=== PATIENT | female | born 1980 | race Caucasian/White ===

== ENCOUNTER 2016-07-26 05:33 | Inpatient (IN) | payer OTHER ==
[~2016-07-26] VITALS: Ht 154.9 cm; Wt 98.7 kg
[~2016-07-26 05:33] MED LIST: ADVIL200 M3 PO; ALAVERT10 MG PO; ATIVAN1 MG PO; BENTYL10 MG PO; CAMPRAL333 MG PO; CYCLOBENZAPRINE 10 M; DILTIAZEM 24HR120 MG PO; FLEXERIL10 MG PO; FLONASE16 G1 NS; FLOVENT 22120 INHALA; HYDROCHLOROTH12.5 M1 PO; HYDROCODON-ACE1 EAC7 PO; KEFLEX500 MG PO; LAMICTAL200 MG PO; LAMICTAL25 MG PO; LAMOTRIGINE100 MG PO; LISINOPRIL-HCT1 EAC3 PO; MEDROL DOSEPAK4 MG PO; METHYLPHENIDATE10 M1 PO; NAPROSYN500 MG PO; NASONEX17 GM BOTH NARES; PANTOPRAZOLE SO40 MG PO; PERCOCET 5/31 TABLET PO; PROAIR HFA8.5 GM IH; PROTONIX40 MG PO; PYRIDIUM200 MG PO; SINGULAIR10 MG; SINGULAIR10 MG PO; TOPROL XL6.25 MG PO; TRAMADOL HCL50 MG PO; TYLENOL WITH C1 EACH PO; VICODIN 5-3001 EACH PO; ZADITOR 0.100 DROP/5 BOTH EYES; ZANTAC150 MG PO; ZESTORETIC 20-1 EAC1 PO; ZOFRAN ODT4 MG PO; ZOFRAN4 MG PO; [UNRECOGNIZED DRUG - OTHER] PO
[2016-07-26] MEDS ORDERED: LISINOPRIL-HCT1 EAC3 BC (06:01)
[2016-07-26 06:12] VITALS: BP 116/83
[2016-07-26 14:38] LABS: D-DIMER ELISA 0.73 mg/L FEU (< 0.57)
[2016-07-26 14:47] LABS: ANION GAP 19 MEQ/L (2-14); CHLORIDE 97 MEQ/L (99-109); SAMPLE HEMOLYSIS CHECK 1; SAMPLE ICTERIC CHECK 0; SAMPLE LIPEMIA CHECK 0; SODIUM 137 MEQ/L (136-147)
[2016-07-26 14:51] LABS: TROP-I INTERPRETATION NEGATIVE; TROPONIN-I < 0.01 ng/mL (0.0-0.30)
[2016-07-26 14:53] LABS: GFR ESTIMATE (CALCULATED) > 59 mL/min/; GLUCOSE 174 mg/dL (70-99); UREA NITROGEN (BUN) 7 mg/dL (9-23)
[2016-07-26 20:20] VITALS: BP 129/84
[2016-07-26 21:46] LABS: D-DIMER ELISA 0.86 mg/L FEU (< 0.57)
[2016-07-26 22:02] LABS: ANION GAP 13 MEQ/L (2-14); CHLORIDE 100 MEQ/L (99-109); GFR ESTIMATE (CALCULATED) > 59 mL/min/; GLUCOSE 229 mg/dL (70-99); POTASSIUM 3.9 MEQ/L (3.7-5.4); SAMPLE HEMOLYSIS CHECK 0; SAMPLE ICTERIC CHECK 0; SAMPLE LIPEMIA CHECK 0; SODIUM 136 MEQ/L (136-147); UREA NITROGEN (BUN) 8 mg/dL (9-23)
[2016-07-26 23:16] VITALS: BP 127/66
[2016-07-27 04:06] VITALS: BP 117/69
[2016-07-27 07:11] LABS: HEMATOCRIT 44.7 % (36.0-46.0); MCH 39.2 PG (29.0-34.0); MCHC 34.7 G/DL (30.0-36.0); MCV 113.2 FL (83-99); MEAN PLAT.VOLUME 9.8 uM^3 (9.5-12.4); PLATELET COUNT 259 K/uL (156-360); RBC DIS.WIDTH-CV 12.6 % (11.8-14.6); RED BLOOD COUNT 3.95 M/uL (3.80-5.20)
[2016-07-27 07:15] LABS: WHITE BLOOD COUNT 19.5 K/uL (4.1-10.2)
[2016-07-27 07:33] LABS: ALKALINE PHOSPHATASE 74 IU/L (3-129); ANION GAP 17 MEQ/L (2-14); CHLORIDE 102 MEQ/L (99-109); GFR ESTIMATE (CALCULATED) > 59 mL/min/; GLUCOSE 173 mg/dL (70-99); POTASSIUM 3.5 MEQ/L (3.7-5.4); SAMPLE HEMOLYSIS CHECK 0; SAMPLE ICTERIC CHECK 0; SAMPLE LIPEMIA CHECK 0; SODIUM 139 MEQ/L (136-147); TOTAL BILIRUBIN 0.6 MG/DL (0.0-1.0); UREA NITROGEN (BUN) 9 mg/dL (9-23)
[2016-07-27 08:00] VITALS: BP 141/85
[2016-07-27 08:12] LABS: TROP-I INTERPRETATION NEGATIVE; TROPONIN-I < 0.01 ng/mL (0.0-0.30)
[2016-07-27 11:53] VITALS: BP 137/87
[2016-07-27 16:50] VITALS: BP 138/75
[2016-07-27 19:45] VITALS: BP 131/77
[2016-07-27 23:48] VITALS: BP 150/88
[2016-07-28 03:30] VITALS: BP 148/82
[2016-07-28 06:50] VITALS: BP 137/80
[2016-07-28 07:23] LABS: MCH 39.3 PG (29.0-34.0); MCV 115.4 FL (83-99); MEAN PLAT.VOLUME 9.7 uM^3 (9.5-12.4); PLATELET COUNT 228 K/uL (156-360); RBC DIS.WIDTH-SD 54.3 % (39-53); RED BLOOD COUNT 3.64 M/uL (3.80-5.20); WHITE BLOOD COUNT 22.5 K/uL (4.1-10.2)
[2016-07-28 07:54] LABS: ALKALINE PHOSPHATASE 51 IU/L (3-129); ANION GAP 12 MEQ/L (2-14); CHLORIDE 107 MEQ/L (99-109); GFR ESTIMATE (CALCULATED) > 59 mL/min/; GLUCOSE 141 mg/dL (70-99); POTASSIUM 3.5 MEQ/L (3.7-5.4); SAMPLE HEMOLYSIS CHECK 0; SAMPLE ICTERIC CHECK 0; SAMPLE LIPEMIA CHECK 0; SODIUM 140 MEQ/L (136-147); TOTAL BILIRUBIN 0.5 MG/DL (0.0-1.0); UREA NITROGEN (BUN) 10 mg/dL (9-23)
[2016-07-28 12:00] VITALS: BP 137/82
[2016-07-28 15:29] VITALS: BP 162/90
[2016-07-28 19:08] VITALS: BP 160/82
[2016-07-29] VITALS (8 sets, daily range): BP systolic 123–184; BP diastolic 64–94
[2016-07-29 07:03] LABS: MCHC 34.6 G/DL (30.0-36.0); MCV 115.5 FL (83-99); PLATELET COUNT 229 K/uL (156-360); RBC DIS.WIDTH-CV 12.8 % (11.8-14.6); RBC DIS.WIDTH-SD 53.8 % (39-53); RED BLOOD COUNT 3.55 M/uL (3.80-5.20); WHITE BLOOD COUNT 19.2 K/uL (4.1-10.2)
[2016-07-29 07:31] LABS: ALKALINE PHOSPHATASE 52 IU/L (3-129); ANION GAP 11 MEQ/L (2-14); CHLORIDE 105 MEQ/L (99-109); GFR ESTIMATE (CALCULATED) > 59 mL/min/; GLUCOSE 116 mg/dL (70-99); SAMPLE HEMOLYSIS CHECK 0; SAMPLE ICTERIC CHECK 0; SAMPLE LIPEMIA CHECK 0; SODIUM 140 MEQ/L (136-147); TOTAL BILIRUBIN 0.5 MG/DL (0.0-1.0); UREA NITROGEN (BUN) 10 mg/dL (9-23)
[2016-07-30 01:15] VITALS: BP 166/88
[2016-07-30 03:20] VITALS: BP 134/90
[2016-07-30 07:34] LABS: ANION GAP 11 MEQ/L (2-14); CHLORIDE 107 MEQ/L (99-109); POTASSIUM 3.5 MEQ/L (3.7-5.4); SAMPLE HEMOLYSIS CHECK 0; SAMPLE ICTERIC CHECK 0; SAMPLE LIPEMIA CHECK 0; SODIUM 139 MEQ/L (136-147)
[2016-07-30 07:39] LABS: GFR ESTIMATE (CALCULATED) > 59 mL/min/; GLUCOSE 131 mg/dL (70-99); UREA NITROGEN (BUN) 8 mg/dL (9-23)
[2016-07-30 08:00] VITALS: BP 141/89
[2016-07-30 12:00] VITALS: BP 141/84
[2016-07-30 16:00] VITALS: BP 149/79
[2016-07-30] MEDS ORDERED: FLEXERIL10 MG PO (17:06)
[2016-07-30] MEDS ORDERED: AMOX TR-K CLV1 EAC4 PO (17:06)
[2016-07-30] MEDS ORDERED: NAPROSYN500 MG PO (17:08)
[2016-07-30] MEDS ORDERED: PREDNISONE20 MG PO (17:11)
[2016-07-30] MEDS ORDERED: PROAIR HFA8.5 GM IH (17:14)
[2016-07-30] MEDS ORDERED: ZOLPIDEM TARTRAT5 MG PO (17:16)
[2016-07-31] MEDS ORDERED: VENTOLIN HFA18 GM IH (01:34)
[2016-07-31] MEDS ORDERED: NAPROXEN500 MG PO (01:35)
[2016-07-31] MEDS ORDERED: ZESTORETIC 20-1 EAC1 PO (01:35)
[2016-07-31] MEDS ORDERED: FLEXERIL10 MG PO (01:35)
[2016-07-31] MEDS ORDERED: CARTIA XT120 MG PO (01:36)
[2016-07-31] MEDS ORDERED: AUGMENTIN875 MG PO (01:38)
[2016-07-31] MEDS ORDERED: ZOLPIDEM TARTRAT5 MG PO (01:38)
[2016-07-31] MEDS ORDERED: DELTASONE20 M1 PO (01:38)
== END 2016-07-30 18:14 | disposition home or self-care (01) | DRG 178 ==
LOC: SDC 05:33 → 2SOUTH 08:30 → 2EAST 08:30 → SDC 15:16 → 2EAST 20:06
PROVIDERS: Internal Medicine; Obstetrics & Gynecology
DX: J69.0 Pneumonitis due to inhalation of food and vomit (principal); J98.11 Atelectasis; Z68.41 Body mass index [BMI] 40.0-44.9, adult; I95.9 Hypotension, unspecified; R00.2 Palpitations; R06.00 Dyspnea, unspecified; D72.829 Elevated white blood cell count, unspecified; J98.01 Acute bronchospasm; I10 Essential (primary) hypertension; E03.9 Hypothyroidism, unspecified; M54.9 Dorsalgia, unspecified; T41.0X5A Adverse effect of inhaled anesthetics, initial encounter; R09.02 Hypoxemia; R00.0 Tachycardia, unspecified; Z88.1 Allergy status to other antibiotic agents; Z87.891 Personal history of nicotine dependence; Z30.432 Encounter for removal of intrauterine contraceptive device; Z88.6 Allergy status to analgesic agent; Z53.9 Procedure and treatment not carried out, unspecified reason; G47.00 Insomnia, unspecified; E66.01 Morbid (severe) obesity due to excess calories
CPT/HCPCS: 36415; 71010; 71275; 80048; 80048 91; 80053; 84484; 84702; 85027; 85379; 87624; 93005; 94002; 94640; 94640 76; 94760; 94799; 99202; J0131; J0690; J0696; J1100; J1650; J2250; J2405; J2543; J2930; J3010; J7030; J7050; J7512

== ENCOUNTER 2016-07-30 21:43 | Observation (INO) | payer OTHER ==
[~2016-07-30] VITALS: Ht 154.9 cm; Wt 102.9 kg
[~2016-07-30 21:43] MED LIST changes: +AMOX TR-K CLV1 EAC4 PO; +LISINOPRIL-HCT1 EAC3 BC; +PREDNISONE20 MG PO; +ZOLPIDEM TARTRAT5 MG PO
[2016-07-30 22:46] LABS: MCH 39.8 PG (29.0-34.0); MCHC 35.5 G/DL (30.0-36.0); MCV 112.2 FL (83-99); MEAN PLAT.VOLUME 9.6 uM^3 (9.5-12.4); PLATELET COUNT 256 K/uL (156-360); RBC DIS.WIDTH-CV 12.2 % (11.8-14.6); RBC DIS.WIDTH-SD 48.4 % (39-53); RED BLOOD COUNT 3.92 M/uL (3.80-5.20); WHITE BLOOD COUNT 20.2 K/uL (4.1-10.2)
[2016-07-30 22:55] LABS: CHLORIDE 106 mEq/L (99-109); POTASSIUM 4.2 mEq/L (3.7-5.4); SODIUM 139 mEq/L (136-147)
[2016-07-30 22:57] LABS: GLUCOSE 135 mg/dL (70-99)
[2016-07-30 22:58] LABS: ANION GAP 13 MEQ/L (2-14)
[2016-07-30 23:01] LABS: GFR ESTIMATE (CALCULATED) > 59 mL/min/; UREA NITROGEN (BUN) 11 mg/dL (9-23)
[2016-07-30 23:55] LABS: TROP-I INTERPRETATION NEGATIVE; TROPONIN-I < 0.01 ng/mL (0.0-0.30)
[2016-07-31] MEDS ORDERED: VENTOLIN HFA18 GM IH (01:34)
[2016-07-31] MEDS ORDERED: ZESTORETIC 20-1 EAC1 PO (01:35)
[2016-07-31] MEDS ORDERED: NAPROXEN500 MG PO (01:35)
[2016-07-31] MEDS ORDERED: FLEXERIL10 MG PO (01:35)
[2016-07-31] MEDS ORDERED: CARTIA XT120 MG PO (01:36)
[2016-07-31] MEDS ORDERED: DELTASONE20 M1 PO (01:38)
[2016-07-31] MEDS ORDERED: ZOLPIDEM TARTRAT5 MG PO (01:38)
[2016-07-31] MEDS ORDERED: AUGMENTIN875 MG PO (01:38)
[2016-07-31 03:20] VITALS: BP 170/111
[2016-07-31 05:30] VITALS: BP 155/89
[2016-07-31 08:09] VITALS: BP 136/102
[2016-07-31 08:20] VITALS: BP 136/102
[2016-07-31 11:50] VITALS: BP 129/83
== END 2016-07-31 14:17 | disposition home or self-care (01) ==
LOC: RME 21:43 → EME 21:43 → EDOF 07-31 02:15 → 5WEST 07-31 02:56
PROVIDERS: Physician Assistant
DX: R06.02 Shortness of breath (principal); D72.829 Elevated white blood cell count, unspecified; T38.0X5A Adverse effect of glucocorticoids and synthetic analogues, initial encounter; I10 Essential (primary) hypertension; G89.29 Other chronic pain; M54.9 Dorsalgia, unspecified; E03.9 Hypothyroidism, unspecified; G47.00 Insomnia, unspecified; E66.01 Morbid (severe) obesity due to excess calories; Z68.41 Body mass index [BMI] 40.0-44.9, adult; D68.9 Coagulation defect, unspecified; Z87.891 Personal history of nicotine dependence; Z88.1 Allergy status to other antibiotic agents; Z88.5 Allergy status to narcotic agent; Z82.49 Family history of ischemic heart disease and other diseases of the circulatory system; Z83.49 Family history of other endocrine, nutritional and metabolic diseases
CPT/HCPCS: 71020; 71275; 80048 91; 83880; 84484; 85027; 85379; 93005; G0378; J0360; J1650; J7512

== ENCOUNTER 2016-08-04 08:51 | Emergency (ER) | payer OTHER ==
[~2016-08-04] VITALS: Ht 154.9 cm; Wt 98.2 kg
[~2016-08-04 08:51] MED LIST changes: +AUGMENTIN875 MG PO; +CARTIA XT120 MG PO; +DELTASONE20 M1 PO; +NAPROXEN500 MG PO; +VENTOLIN HFA18 GM IH
[2016-08-04] MEDS ORDERED: PREDNISONE20 MG PO (09:07)
[2016-08-04] MEDS ORDERED: ULTRAM50 MG PO (09:07)
[2016-08-04 10:18] VITALS: BP 122/73
== END 2016-08-04 10:19 | disposition home or self-care (01) ==
LOC: EME → EDBD 08:51 → EME 10:19
DX: M25.551 Pain in right hip (principal); M25.552 Pain in left hip; M54.5 Low back pain; J45.909 Unspecified asthma, uncomplicated; I10 Essential (primary) hypertension; Z88.1 Allergy status to other antibiotic agents; Z88.5 Allergy status to narcotic agent
CPT/HCPCS: 99281; 99284; J7512

== ENCOUNTER 2017-06-09 13:40 | Emergency (ER) | payer BC ==
[~2017-06-09] VITALS: Ht 154.9 cm; Wt 97.5 kg
[~2017-06-09 13:40] MED LIST changes: +ULTRAM50 MG PO
[2017-06-09 15:41] LABS: ADD MIUA? YES; BILIRUBIN NEGATIVE; BLOOD SMALL; COLOR STRAW ((YELLOW)); GLUCOSE (STRIP) NEGATIVE; KETONES NEGATIVE; LEUKOCYTES TRACE; NITRITE NEGATIVE; PROTEIN (STRIP) NEGATIVE; SPECIFIC GRAVITY 1.003 (1.000-1.030); UROBILINOGEN 0.2 MG/DL (0.2-1.0)
[2017-06-09 15:45] LABS: BACTERIA RARE /HPF; EPITHELIAL CELLS 1+ /HPF; MUCUS TRACE /LPF; RED BLOOD CELLS 0-5 /HPF (0-5); WHITE BLOOD CELLS 0-5 /HPF (0-5)
[2017-06-09 15:49] LABS: D-DIMER ELISA < 150.00 ng/mLDDU (<230)
[2017-06-09 16:02] LABS: TROP-I INTERPRETATION NEGATIVE; TROPONIN-I < 0.01 ng/mL (0.0-0.30)
[2017-06-09 16:23] LABS: BASOPHIL COUNT 0.1 K/uL (0-0.1); EOSINOPHIL (%) 2.5 % (0-5); EOSINOPHIL COUNT 0.3 K/uL (0-0.3); HEMATOCRIT 37.9 % (36.0-46.0); IMMATURE GRANULOCYTE (%) 0.5 % (0.0-0.7); IMMATURE GRANULOCYTE COUNT 0.1 K/uL; INSTRUMENT ABS NEUTROPHIL CT 7.2 K/uL; LYMPHOCYTE COUNT 2.7 K/uL (1.0-2.8); MCH 41.3 PG (29.0-34.0); MCHC 36.4 G/DL (30.0-36.0); MCV 113.5 FL (83-99); MEAN PLAT.VOLUME 8.2 uM^3 (9.5-12.4); MONOCYTE (%) 7.1 % (3-12); MONOCYTE COUNT 0.8 K/uL (0-0.8); NEUTROPHIL (%) 64.6 % (45-76); NEUTROPHIL COUNT 7.2 K/uL (1.8-6.4); PLATELET COUNT 298 K/uL (156-360); RBC DIS.WIDTH-CV 12.1 % (11.8-14.6); RBC DIS.WIDTH-SD 50.7 % (39-53); RED BLOOD COUNT 3.34 M/uL (3.80-5.20); WHITE BLOOD COUNT 11.1 K/uL (4.1-10.2)
[2017-06-09 16:27] LABS: ANISOCYTOSIS 2+; MACROCYTES 3+; POLYCHROMASIA 1+; STOMATOCYTES 1+; TARGET CELLS 1+
[2017-06-09] MEDS ORDERED: ATARAX,VISTARIL50 MG PO (16:42)
[2017-06-09] MEDS ORDERED: PREDNISONE10 MG PO (16:42)
[2017-06-09 17:00] VITALS: BP 103/59
== END 2017-06-09 17:01 | disposition home or self-care (01) ==
LOC: EME 13:40
PROVIDERS: Physician Assistant
DX: M50.322 Other cervical disc degeneration at C5-C6 level (principal); R06.02 Shortness of breath; I10 Essential (primary) hypertension; J45.909 Unspecified asthma, uncomplicated; F41.9 Anxiety disorder, unspecified; F32.9 Major depressive disorder, single episode, unspecified; Z86.73 Personal history of transient ischemic attack (TIA), and cerebral infarction without residual deficits; Z88.1 Allergy status to other antibiotic agents; Z88.5 Allergy status to narcotic agent
CPT/HCPCS: 71020; 72040; 72100; 81003; 84484; 84702; 85025; 85379; 93005; 99281; 99284

== ENCOUNTER 2017-11-25 18:40 | Observation (INO) | payer OTHER ==
[~2017-11-25] VITALS: Ht 156.2 cm; Wt 95.3 kg
[~2017-11-25 18:40] MED LIST changes: +ATARAX,VISTARIL50 MG PO; +PREDNISONE10 MG PO
[2017-11-25 19:35] LABS: CHLORIDE 96 mEq/L (99-109)
[2017-11-25 19:36] LABS: SODIUM 129 mEq/L (136-147)
[2017-11-25 19:38] LABS: GLUCOSE 92 mg/dL (70-99); TOTAL PROTEIN 8.2 g/dL (6.4-8.3)
[2017-11-25 19:40] LABS: TOTAL BILIRUBIN 0.4 mg/dL (0.0-1.0)
[2017-11-25 19:41] LABS: ALKALINE PHOSPHATASE 97 IU/L (3-129); CREATININE 0.9 mg/dL (0.6-1.3); GFR ESTIMATE (CALCULATED) > 59 mL/min/
[2017-11-25 19:43] LABS: AST (GOT) 84 IU/L (2-34); UREA NITROGEN (BUN) 7 mg/dL (9-23)
[2017-11-25 19:44] LABS: ALT (GPT) 59 IU/L (3-49)
[2017-11-25 19:45] LABS: LIPASE 19 U/L (1.0-51.0)
[2017-11-25 19:51] LABS: QUANTITATIVE HCG < 4.0 MIU/ML; TROP-I INTERPRETATION NEGATIVE; TROPONIN-I < 0.01 ng/mL (0.0-0.30)
[2017-11-25 19:58] LABS: APPEARANCE SL.HAZY ((CLEAR)); BILIRUBIN NEGATIVE; BLOOD LARGE; COLOR YELLOW ((YELLOW)); GLUCOSE (STRIP) NEGATIVE; KETONES NEGATIVE; LEUKOCYTES TRACE; NITRITE NEGATIVE; PROTEIN (STRIP) 30; SPECIFIC GRAVITY 1.018 (1.000-1.030); UROBILINOGEN 0.2 MG/DL (0.2-1.0)
[2017-11-25 20:01] LABS: PLATELET COUNT 292 K/uL (156-360)
[2017-11-25 20:06] LABS: EPITHELIAL CELLS RARE /HPF; RED BLOOD CELLS TNTC /HPF (0-5)
[2017-11-25 20:07] LABS: BACTERIA NONE SEEN /HPF; MUCUS TRACE /LPF; UCUL ADDED? YES
[2017-11-25 20:21] LABS: RED BLOOD COUNT 3.88 M/uL (3.80-5.20); WHITE BLOOD COUNT 10.8 K/uL (4.1-10.2)
[2017-11-25 20:41] LABS: HEMOGLOBIN 16.2 G/DL (11.9-15.5)
[2017-11-25 20:42] LABS: MCV 41.8 FL (83-99)
[2017-11-25 20:43] LABS: RBC DIS.WIDTH-CV 12.1 % (11.8-14.6); RBC DIS.WIDTH-SD 50.1 % (39-53)
[2017-11-25 21:41] LABS: PLATELET COUNT 264 K/uL (156-360)
[2017-11-25 21:42] LABS: RBC DIS.WIDTH-CV 11.9 % (11.8-14.6); RBC DIS.WIDTH-SD 49.6 % (39-53); RED BLOOD COUNT 3.66 M/uL (3.80-5.20); WHITE BLOOD COUNT 10.7 K/uL (4.1-10.2)
[2017-11-25 22:10] LABS: HEMOGLOBIN 15.3 G/DL (11.9-15.5)
[2017-11-25 22:11] LABS: MCH 41.8 PG (29.0-34.0); MCHC 33.8 G/DL (30.0-36.0); MCV 110.9 FL (83-99)
[2017-11-25] MEDS ORDERED: LISINOPRIL-HCT1 EAC3 PO (22:39)
[2017-11-25] MEDS ORDERED: FLONASE16 G1 BOTH NARES (22:39)
[2017-11-25] MEDS ORDERED: PROAIR HFA8.5 GM IH (22:41)
[2017-11-26 00:07] VITALS: BP 113/66
[2017-11-26 02:22] LABS: HEMOGLOBIN 15.1 G/DL (11.9-15.5); MCH 41.1 PG (29.0-34.0); MCHC 36.8 G/DL (30.0-36.0); MCV 111.7 FL (83-99); PLATELET COUNT 269 K/uL (156-360); RBC DIS.WIDTH-CV 12.1 % (11.8-14.6); RBC DIS.WIDTH-SD 50.5 % (39-53); RED BLOOD COUNT 3.67 M/uL (3.80-5.20); WHITE BLOOD COUNT 9.7 K/uL (4.1-10.2)
[2017-11-26 02:34] LABS: CHLORIDE 95 mEq/L (99-109); SODIUM 131 mEq/L (136-147)
[2017-11-26 02:36] LABS: GLUCOSE 98 mg/dL (70-99)
[2017-11-26 02:40] LABS: CREATININE 0.9 mg/dL (0.6-1.3); GFR ESTIMATE (CALCULATED) > 59 mL/min/
[2017-11-26 02:41] LABS: UREA NITROGEN (BUN) 8 mg/dL (9-23)
[2017-11-26 02:48] LABS: TROP-I INTERPRETATION NEGATIVE; TROPONIN-I < 0.01 ng/mL (0.0-0.30)
[2017-11-26 05:26] VITALS: BP 111/72
[2017-11-26 07:29] VITALS: BP 122/76
[2017-11-26] MEDS ORDERED: CALMS FORTE PO (09:44)
[2017-11-26 10:33] LABS: TROP-I INTERPRETATION NEGATIVE; TROPONIN-I < 0.01 ng/mL (0.0-0.30)
[2017-11-26 12:11] VITALS: BP 131/71
[2017-11-26] MEDS ORDERED: Thiamine,Vitamin B1 PO (12:43)
[2017-11-26] MEDS ORDERED: FOLIC ACID1 MG PO (12:43)
== END 2017-11-26 13:44 | disposition home or self-care (01) ==
LOC: EME 18:40 → 4SOUTH 22:42 → EDOF 22:42 → ENRESERV 22:44 → 4SOUTH 11-26
PROVIDERS: Emergency Medicine; Hospitalist; Physician Assistant
DX: R94.31 Abnormal electrocardiogram [ECG] [EKG] (principal); R10.11 Right upper quadrant pain; R10.13 Epigastric pain; N39.0 Urinary tract infection, site not specified; R79.89 Other specified abnormal findings of blood chemistry; K21.9 Gastro-esophageal reflux disease without esophagitis; E86.0 Dehydration; E87.1 Hypo-osmolality and hyponatremia; E66.01 Morbid (severe) obesity due to excess calories; Z68.39 Body mass index [BMI] 39.0-39.9, adult; I10 Essential (primary) hypertension; R19.7 Diarrhea, unspecified; R11.0 Nausea; Z87.891 Personal history of nicotine dependence; Z72.89 Other problems related to lifestyle; F12.90 Cannabis use, unspecified, uncomplicated; Z82.49 Family history of ischemic heart disease and other diseases of the circulatory system; Z88.1 Allergy status to other antibiotic agents; Z88.5 Allergy status to narcotic agent
CPT/HCPCS: 71046; 76705; 80048; 80053; 81003; 83690; 84484; 84702; 85027; 87086; 93005; 94640; 99281; 99284; G0378; J0744; J1650; J2060; J7030

== ENCOUNTER 2018-02-04 11:29 | Emergency (ER) | payer OTHER ==
[~2018-02-04] VITALS: Ht 154.9 cm; Wt 96.5 kg
[~2018-02-04 11:29] MED LIST changes: +CALMS FORTE PO; +FLONASE16 G1 BOTH NARES; +FOLIC ACID1 MG PO; +Thiamine,Vitamin B1 PO
[2018-02-04] MEDS ORDERED: LIDODERM 5% P1 PATCH TD (13:04)
[2018-02-04] MEDS ORDERED: NAPROXEN500 MG PO (13:04)
[2018-02-04] MEDS ORDERED: FLEXERIL10 MG PO (13:04)
[2018-02-04] MEDS ORDERED: MEDROL DOSEPAK4 MG PO (13:04)
[2018-02-04 13:29] VITALS: BP 112/81
== END 2018-02-04 13:31 | disposition home or self-care (01) ==
LOC: EME 11:29
DX: M54.12 Radiculopathy, cervical region (principal); M25.512 Pain in left shoulder; M79.622 Pain in left upper arm; R53.1 Weakness; I10 Essential (primary) hypertension
CPT/HCPCS: 99281; 99284